=== PATIENT | female | born 1975 | race Asian ===

== ENCOUNTER → 2020-09-29 | Outpatient (CLI) | payer BC | LOC: MC.RAD 13:15 | DX: Z12.31 Encounter for screening mammogram for malignant neoplasm of breast (principal) ==

== ENCOUNTER 2023-08-17 08:23 | Day surgery (SDC) | payer BC ==
[~2023-08-17] VITALS: Ht 167.6 cm; Wt 84.6 kg
[~2023-08-17 08:23] MED LIST: LR 1,000 ML IV SCH; Ondansetron 4 MG/2 ML VIAL IV PRN
[2023-08-17] MEDS ORDERED: fentaNYL 50 MCG/ML 2 ML VIAL ONE (09:55)
[2023-08-17] MEDS ORDERED: Lidocaine PF 2% (20 MG/ML) 5 ML VIAL ONE (09:55)
[2023-08-17 10:30] VITALS: BP 91/67; PULSE 64; TEMP 97.2
[2023-08-17 10:45] VITALS: BP 107/41; PULSE 64
[2023-08-17 11:00] VITALS: BP 111/61; PULSE 64
--- NOTE | 2023-08-17 11:25 | NUR ---
1030 RETURNS TO ROOM PER CART. AWAKE, ALERT. RESP UNLABORED. AMBULATES TO RECLINER WITH STANDBY ASSIST. DENIES NAUSEA OR ABD PAIN. VITAL SIGNS OBTAINED. CALL LIGHT AT SIDE. HERE 1045 TOLERATES PO WATER AND SALTINE CRACKERS WITHOUT NAUSEA. DISCHARGE INSTRUCTIONS REVIEWED. PATIENT VERBALIZES UNDERSTANDING. COPY PROVIDED IN DISCHARGE FOLDER [address] DR[address] TORREZ HERE TO VISIT WITH PATIENT 1115 DRESSES SELF
[2023-08-17 11:44] VITALS: BP 104/64; PULSE 66; TEMP 97.3
== END 2023-08-17 11:25 | disposition home or self-care (01) ==
LOC: SDCO 08:23
DX: Z12.11 Encounter for screening for malignant neoplasm of colon (principal); R19.5 Other fecal abnormalities; E66.9 Obesity, unspecified
CPT/HCPCS: J2704; J3010; J7120